=== PATIENT | male | born 1955 | race American Indian/Alaskan Native ===

== ENCOUNTER 2020-10-16 16:38 | Emergency (ER) | payer OTHER ==
[2020-10-16] MEDS ORDERED: DIPHtheria,PERTUSSIS(ACELL),TETANUS VACCINE/PF 0.5 ML VIAL IM ONE (17:55)
[2020-10-16] MEDS ORDERED: ACETAMINOPHEN 325 MG TAB PO ONE (17:55)
--- NOTE | 2020-10-16 18:01 | Emergency Department Report ---
ED General Adult HPI - General Chief complaint: Allergic Reaction Stated complaint: LACERATION BACK OF HEAD Time Seen by Provider: 10/16/20 17:49 Source: patient Mode of arrival: Ambulatory Limitations: No Limitations - History of Present Illness Initial comments: Patient is a 65-year-old male presents emergency room with complaints of a syncopal episode that occurred earlier at today. Patient states that he has a history of cervical disc issues and was just started on Voltaren by his orthopedic doctor. He states he previously used to use the Voltaren gel without any reaction. He states that he took 1 tablet of the pill today and got in the shower. He states that he then began to feel hot and started itching. He states that when he got out of the shower that he fell onto the ground and hit his head. He states that he has a laceration to his posterior scalp. He is not exactly sure what happened and states he just woke up on the ground. He states that he had a brief episode of loss of consciousness. He denies any neck pain, back pain, vision changes, numbness, weakness, bowel or bladder incontinence, gait disturbance, speech disturbance, fever, nausea, vomiting, diarrhea, shortness of breath, chest pain, facial swelling, sensation of throat closing. He has a past medical history of lupus. He has an allergy to sulfa. He is u nsure of his last tetanus immunization. - Related Data Previous Rx's Medication Instructions Recorded Last Taken Type Colchicine 0.6 mg PO DAILY #10 tablet 10/16/20 Unknown Rx Ibuprofen [Motrin 600 MG tab] 600 mg PO Q8H #20 tablet 10/16/20 Unknown Rx Allergies Allergy/AdvReac Type Severity Reaction Status Date / Time Sulfa (Sulfonamide Allergy Unknown Verified 07/17/18 02:42 Antibiotics) ED Review of Systems ROS: Stated complaint: LACERATION BACK OF HEAD Other details as noted in HPI Comment: All other systems reviewed and negative ED Past Medical Hx - Past Medical History Previous Medical History?: Yes Hx Seizures: Yes - Surgical History Past Surgical History?: Yes Additional Surgical History: knee. hernia. shoulder. back - Social History Smoking Status: Never Smoker Substance Use Type: None - Medications Home Medications: Home Medications Medication Instructions Recorded Confirmed Last Taken Type Colchicine 0.6 mg PO DAILY #10 tablet 10/16/20 Unknown Rx Ibuprofen [Motrin 600 MG tab] 600 mg PO Q8H #20 tablet 10/16/20 Unknown Rx ED Physical Exam - General Limitations: No Limitations General appearance: alert, in no apparent distress - Head Head exam: Present: other (3 cm superficial laceration present to the posterior scalp, it is only slightly open and appears to be already closing, no bleeding, no skull or facial bony ttp, no deformity, no crepitus) - Eye Eye exam: Present: normal appearance, PERRL, EOMI. Absent: conjunctival injection, periorbital swelling, periorbital tenderness Pupils: Present: normal accommodation - ENT ENT exam: Present: mucous membranes moist - Neck Neck exam: Present: normal inspection, full ROM. Absent: tenderness - Respiratory Respiratory exam: Present: normal lung sounds bilaterally. Absent: respiratory distress, wheezes, rales, rhonchi, stridor, chest wall tenderness, accessory muscle use, decreased breath sounds, prolonged expiratory - Cardiovascular Cardiovascular Exam: Present: regular rate, normal rhythm, normal heart sounds. Absent: systolic murmur, diastolic murmur, rubs, gallop - Back Exam Back exam: Present: normal inspection, full ROM. Absent: paraspinal tenderness, vertebral tenderness - Neurological Exam Neurological exam: Present: alert, oriented X3, CN II-XII intact, normal gait. Absent: motor sensory deficit - Psychiatric Psychiatric exam: Present: normal affect, normal mood - Skin Skin exam: Present: warm, dry ED Course Vital Signs 10/16/20 10/16/20 10/16/20 17:04 18:23 19:58 Temperature 98 F Pulse Rate 110 H Pulse Rate [ 97 H Sitting] Respiratory 20 18 Rate Blood Pressure 101/65 Blood Pressure [Left] Blood Pressure 102/73 [Sitting] O2 Sat by Pulse 98 Oximetry 10/16/20 10/16/20 19:59 20:00 Temperature Pulse Rate 97 H Pulse Rate [ Sitting] Respiratory 16 Rate Blood Pressure Blood Pressure 102/73 [Left] Blood Pressure [Sitting] O2 Sat by Pulse Oximetry - Laceration /Wound Repair Head Wound Location: head (posterior scalp) Wound Length (cm): 3 Wound's Depth, Shape: superficial Wound Explored: clean Irrigated w/ Saline (ccs): 50 Betadine Prep?: Yes Wound Debrided: moderate Wound Repaired With: Steri-strips, Dermabond Progress: Wound irrigated with saline and thoroughly scrubbed with Betadine, it is very superficial, it is not gaping open, multiple layers of Dermabond placed with good skin approximation, Steri-Strips applied, there is no bleeding, patient tolerated well, no complications ED Medical Decision Making - Lab Data Result diagrams: 10/16/20 18:09 10/16/20 18:09 Lab Results 10/16/20 10/16/20 Range/Units 18:09 18:09 WBC 7.9 (4.5-11.0) K/mm3 RBC 4.64 (3.65-5.03) M/mm3 Hgb 15.9 H (11.8-15.2) gm/dl Hct 46.1 H (35.5-45.6) % MCV 99 H (84-94) fl MCH 34 H (28-32) pg MCHC 34 (32-34) % RDW 13.3 (13.2-15.2) % Plt Count 285 (140-440) K/mm3 Lymph % (Auto) 4.9 L (13.4-35.0) % [place] % (Auto) 5.7 (0.0-7.3) % Eos % (Auto) 0.2 (0.0-4.3) % Baso % (Auto) 0.3 (0.0-1.8) % Lymph # (Auto) 0.4 L (1.2-5.4) K/mm3 [place] # (Auto) 0.5 (0.0-0.8) K/mm3 Eos # (Auto) 0.0 (0.0-0.4) K/mm3 Baso # (Auto) 0.0 (0.0-0.1) K/mm3 Seg Neutrophils % 88.9 H (40.0-70.0) % Seg Neutrophils # 7.1 (1.8-7.7) K/mm3 Sodium 136 L (137-145) mmol/L Potassium 4.2 (3.6-5.0) mmol/L Chloride 102.2 (98-107) mmol/L Carbon Dioxide 21 L (22-30) mmol/L Anion Gap 17 mmol/L BUN 16 (9-20) mg/dL Creatinine 1.1 (0.8-1.3) mg/dL Estimated GFR > 60 ml/min BUN/Creatinine Ratio 15 % Glucose 88 (75-100) mg/dL Calcium 8.9 (8.4-10.2) mg/dL Magnesium 2.10 (1.7-2.3) mg/dL Total Bilirubin 0.30 (0.1-1.2) mg/dL AST 36 (5-40) units/L ALT 22 (7-56) units/L Alkaline Phosphatase 38 (35-129) units/L Total Creatine Kinase 416 H (55-170) units/L Troponin T < 0.010 (0.00-0.029) ng/mL Total Protein 7.0 (6.3-8.2) g/dL Albumin 4.2 (3.9-5) g/dL Albumin/Globulin Ratio 1.5 % Vital Signs 10/16/20 10/16/20 10/16/20 17:04 18:23 19:58 Temperature 98 F Pulse Rate 110 H Pulse Rate [ 97 H Sitting] Respiratory 20 18 Rate Blood Pressure 101/65 Blood Pressure [Left] Blood Pressure 102/73 [Sitting] O2 Sat by Pulse 98 Oximetry 10/16/20 10/16/20 19:59 20:00 Temperature Pulse Rate 97 H Pulse Rate [ Sitting] Respiratory 16 Rate Blood Pressure Blood Pressure 102/73 [Left] Blood Pressure [Sitting] O2 Sat by Pulse Oximetry - EKG Data EKG shows normal: sinus rhythm, axis, QRS complexes Rate: tachycardia - EKG Data 10/16/20 22:12 OR depression and mild ST elevation diffusely, could represent acute pericarditis no STEMI - Radiology Data Radiology results: report reviewed Ordering Physician: TELMA ROSE Date of Service: 10/16/20 Procedure(s): CT head/brain wo [facility] Accession Number(s): [id number] cc: TELMA ROSE CT HEAD WITHOUT CONTRAST HISTORY: MAIN COMPARISON: None TECHNIQUE: CT imaging of the head was performed in the axial, sagittal, and coronal projections and bone algorithm in axial projection in the soft tissue algorithm. All CT scans at this location are performed using CT dose reduction for ALARA by means of automated exposure control. CONTRAST: None. FINDINGS: Cerebral and Cerebellar Hemispheres: No evidence of mass or mass effect. No midline shift. No acute hemorrhage. No acute cortical infarction. No extra-axial fluid collection. Ventricles: Normal in size and configuration for age. Osseous Structures: No significant abnormality. Visualized Paranasal Sinuses: No significant abnormality. Additional Findings: None IMPRESSION: 1. No acute intracranial abnormality. NOTE: Acute infarct may not be visible by noncontrast CT. Signer Name: Fredo Cunha MD Signed: 10/16/2020 6:42 PM Workstation Name: [id number] Transcribed By: JAVAN Dictated By: Fredo Cunha MD Electronically Authenticated By: Fredo Cunha MD Signed Date/Time: 10/16/201841 DD/ 40 TD/TT: Print - Medical Decision Making Patient is a 65-year-old male presents emergency room with complaints of a sy ncopal episode that occurred earlier at today. Patient states that he has a history of cervical disc issues and was just started on Voltaren by his orthopedic doctor. He states he previously used to use the Voltaren gel without any reaction. He states that he took 1 tablet of the pill today and got in the shower. He states that he then began to feel hot and started itching. He states that when he got out of the shower that he fell onto the ground and hit his head. He states that he has a laceration to his posterior scalp. He is not exactly sure what happened and states he just woke up on the ground. He states that he had a brief episode of loss of consciousness. He denies any neck pain, back pain, vision changes, numbness, weakness, bowel or bladder incontinence, gait disturbance, speech disturbance, fever, nausea, vomiting, diarrhea, shortness of breath, chest pain, facial swelling, sensation of throat closing. He has a past medical history of lupus. He has an allergy to sulfa. He is unsure of his last tetanus immunization. initial vitals with elevated heart rate which improved upon repeat. On exam:3 cm superficial laceration present to the posterior scalp, it is only slightly open and appears to be already closing, no bleeding, no skull or facial bony ttp, no deformity, no crepitus, no focal neuro deficit on exam. EKG shows OR depression and mild diffuse ST kwaku vation, likely consistent with acute pericarditis, he does have a history of lupus, could be associated, no STEMI. Labs with mild dehydration, otherwise stable. CT head: 1. No acute intracranial abnormality. Superficial laceration repaired per procedure note without any complications. Discussed case with Dr. Lucas, ER attending who recommended admission for syncope. Discussed with patient that he would need to be admitted to the hospital service for further evaluation of syncope. Patient states that he does not want to stay and he just wanted to have his laceration fixed and to go home. I advised patient that he would need to sign out AGAINST MEDICAL ADVICE. The patient is alert and oriented x3. The patient exhibits decision-making capacity. The patient is free from distracting injury. The risk of leaving without a complete medical examination, and AGAINST MEDICAL ADVICE, were explained to the patient, and they included , disability, paralysis, permanent loss of quality of life. Patient verbalized understanding to these and was able to articulate these risk in their own words. Critical care attestation.: If time is entered above; I have spent that time in minutes in the direct care of this critically ill patient, excluding procedure time. ED Disposition Clinical Impression: Syncope Qualifiers: Syncope type: unspecified Qualified Code(s): R55 - Syncope and collapse Pericarditis Qualifiers: Pericarditis type: unspecified type Chronicity: acute Qualified Code(s): I30.9 - Acute pericarditis, unspecified Scalp laceration Qualifiers: Encounter type: initial encounter Qualified Code(s): S01.01XA - Laceration without foreign body of scalp, initial encounter Disposition: DC-07 LEFT AGAINST MED ADVICE Is pt being admited?: No Does the pt Need Aspirin: No Condition: Undetermined Instructions: Pericarditis, Laceration Care, Adult, Syncope, [id number], Syncope (ED) Additional Instructions: Please take medication as prescribed. Please do not get area wet on the back of your head for the next 2 days. After 2 days may wash with soap and water pat dry. Follow-up with your primary care doctor soon as possible. Follow-up with a networking engineer soon as possible. Return to emergency room immediately if you wo uld like to be admitted You are leaving today AGAINST MEDICAL ADVICE the risks associated with doing so include , disability, permanent loss of quality of life, serious infection Prescriptions: Colchicine 0.6 mg PO DAILY #10 tablet Ibuprofen [Motrin 600 MG tab] 600 mg PO Q8H #20 tablet Referrals: JAYSON ADRIAN MD [Primary Care Provider] - 2-3 Days ÁLVARO MILLER MD [Staff Physician] - 2-3 Days Forms: AMA Form Time of Disposition: 20:10 Print Language: ROMANSH
[2020-10-16 18:40] LABS: Basophils % (Auto) 0.3 % (0.0-1.8); Eosinophils % (Auto) 0.2 % (0.0-4.3); Hematocrit 46.1 % (35.5-45.6); Hemoglobin 15.9 gm/dl (11.8-15.2); Lymphocytes # (Auto) 0.4 K/mm3 (1.2-5.4); Lymphocytes % (Auto) 4.9 % (13.4-35.0); Mean Corpuscular HGB Conc 34 % (32-34); Mean Corpuscular Volume 99 fl (84-94); Monocytes # (Auto) 0.5 K/mm3 (0.0-0.8); Monocytes % (Auto) 5.7 % (0.0-7.3); Platelet Count 285 K/mm3 (140-440); Red Blood Count 4.64 M/mm3 (3.65-5.03); Red Cell Distribution Width 13.3 % (13.2-15.2)
[2020-10-16 18:46] LABS: Alanine Aminotransferase 22 units/L (7-56); Albumin 4.2 g/dL (3.9-5); BUN/Creatinine Ratio 15; Blood Urea Nitrogen 16 mg/dL (9-20); Calcium 8.9 mg/dL (8.4-10.2); Hemolysis Index 73
--- NOTE | 2020-10-16 18:47 | Cat Scan Report ---
CT HEAD WITHOUT CONTRAST HISTORY: MAIN COMPARISON: None TECHNIQUE: CT imaging of the head was performed in the axial, sagittal, and coronal projections and bone algori thm in axial projection in the soft tissue algorithm. All CT scans at this location are performed using CT dose reduction for ALARA by means of automated e xposure control. CONTRAST: None. FINDINGS: Cerebral and Cerebellar Hemispheres: No evidence of mass or mass effect. No midline shift. No acute hemorrhage. No acute cortical infarction. No extra-axial fluid collection. Ventricles: Normal in size and configuration for age. Osseous Structures: No significant abnormality. Visualized Paranasal Sinuses: No significant abnormality. Additional Findings: None IMPRESSION: 1. No acute intracranial abnormality. NOTE: Acute infarct may not be visible by noncontrast CT. Signer Name: Fredo Cunha MD Signed: 10/16/2020 6:42 PM Workstation Name: [id number]
[2020-10-16 19:59] VITALS: BP 102/73
--- NOTE | 2020-10-17 14:02 | Electrocardiograph Report ---
[facility] Test Date: 2020-10-16 Test Time: 17:59:22 Pat Name: CARMEN SELF Department: Room: Gender: M Supervisor Prepress: NIRANJAN : 1955 Requested By: DAIJA WOODS Order Number: [id number] Reading MD: Noble Ruffin Measurements Intervals [place] Rate: 100 P: 80 [place]: 142 QRS: 80 QRSD: 72 T: 62 QT: 333 QTc: 430 Interpretive Statements Sinus tachycardia Right atrial enlargement ST elevation suggests acute pericarditis No previous ECG available for comparison Electronically Signed On 10-17-2020 11:01:53 PDT by Noble Ruffin
== END 2020-10-16 20:32 | disposition left against medical advice (07) ==
LOC: ED 16:38
DX: S01.01XA Laceration without foreign body of scalp, initial encounter (principal); R56.9 Unspecified convulsions; Z98.890 Other specified postprocedural states; Z79.1 Long term (current) use of non-steroidal anti-inflammatories (NSAID); Z79.899 Other long term (current) drug therapy; Z88.2 Allergy status to sulfonamides; W18.30XA Fall on same level, unspecified, initial encounter; Y93.89 Activity, other specified; Y92.89 Other specified places as the place of occurrence of the external cause; Y99.8 Other external cause status
CPT/HCPCS: 36415; 70450; 80053; 82550; 83735; 84484; 85025; 90471; 90715; 93005

== ENCOUNTER 2021-10-06 13:07 | Emergency (ER) | payer OTHER ==
--- NOTE | 2021-10-06 17:39 | Emergency Department Report ---
ED General Adult HPI - General Chief complaint: Pain General Stated complaint: SEIZURE LUPUS RELATED Time Seen by Provider: 10/06/21 17:05 Source: patient Mode of arrival: Ambulatory Limitations: No Limitations - History of Present Illness Initial comments: Chief complaint: "I hurt everywhere." HPI: This is a 66-year-old male with history of discoid lupus, cervical disc disease, seizure who presents with diffuse pain in his lower back and lower legs. He takes hydroxychloroquine. He thinks he may have had a seizure on Sunday which may have caused the pain. -: Gradual, days(s) (2 days) Location: back, left, right, lower extremity Severity scale (0 -10): 8 Quality: aching Consistency: constant Improves with: none Worsens with: none Associated Symptoms: denies other symptoms Treatments Prior to Arrival: none - Related Data Previous Rx's Medication Instructions Recorded Last Taken Type Colchicine 0.6 mg PO DAILY #10 tablet 10/16/20 Unknown Rx Ibuprofen [Motrin 600 MG tab] 600 mg PO Q8H #20 tablet 10/16/20 Unknown Rx Prednisone [predniSONE 10 mg 10 mg PO .TAPER #1 10/06/21 Unknown Rx (6-Day Pack, 21 Tabs)] oxyCODONE /ACETAMINOPHEN [Percocet 1 tab PO Q6HR PRN #10 tablet 10/06/21 Unknown Rx 5/325] Allergies Allergy/AdvReac Type Severity Reaction Status Date / Time Sulfa (Sulfonamide Allergy Unknown Verified 07/17/18 02:42 Antibiotics) ED Review of Systems ROS: Stated complaint: SEIZURE LUPUS RELATED Other details as noted in HPI Comment: All other systems reviewed and negative Constitutional: denies: chills, fever, malaise Respiratory: denies: cough Cardiovascular: denies: chest pain Gastrointestinal: denies: abdominal pain, nausea, vomiting Musculoskeletal: back pain, myalgia Neurological: denies: headache ED Past Medical Hx - Past Medical History Previous Medical History?: Yes Hx Seizures: Yes Additional medical history: Discoid lupus - Surgical History Past Surgical History?: Yes Additional Surgical History: knee. hernia. shoulder. back - Social History Smoking Status: Never Smoker Substance Use Type: None - Medications Home Medications: Home Medications Medication Instructions Recorded Confirmed Last Taken Type Colchicine 0.6 mg PO DAILY #10 tablet 10/16/20 Unknown Rx Ibuprofen [Motrin 600 MG tab] 600 mg PO Q8H #20 tablet 10/16/20 Unknown Rx Prednisone [predniSONE 10 mg 10 mg PO .TAPER #1 10/06/21 Unknown Rx (6-Day Pack, 21 Tabs)] oxyCODONE /ACETAMINOPHEN [Percocet 1 tab PO Q6HR PRN #10 tablet 10/06/21 Unknown Rx 5/325] ED Physical Exam - General Limitations: No Limitations General appearance: alert, in no apparent distress - Head Head exam: Present: atraumatic, normocephalic - Eye Eye exam: Present: normal appearance - ENT ENT exam: Present: mucous membranes moist - Neck Neck exam: Present: normal inspection, full ROM - Respiratory Respiratory exam: Present: normal lung sounds bilaterally. Absent: respiratory distress, wheezes, rales, rhonchi - Cardiovascular Cardiovascular Exam: Present: regular rate, normal rhythm, normal heart sounds. Absent: systolic murmur, diastolic murmur, rubs, gallop - GI/Abdominal GI/Abdominal exam: Present: soft, normal bowel sounds. Absent: distended, tenderness, guarding, rebound - Rectal Rectal exam: Present: deferred - Extremities Exam Extremities exam: Present: normal inspection - Back Exam Back exam: Present: normal inspection, full ROM. Absent: tenderness - Neurological Exam Neurological exam: Present: alert, oriented X3 - Psychiatric Psychiatric exam: Present: normal affect, normal mood - Skin Skin exam: Present: warm, dry, intact, normal color. Absent: rash ED Course Vital Signs 10/06/21 13:32 Temperature 99.0 F Pulse Rate 112 H Respiratory 18 Rate Blood Pressure 119/88 O2 Sat by Pulse 97 Oximetry ED Medical Decision Making - Medical Decision Making Generalized pain and lower back pain lower legs. Normal physical exam. Pain likely due to mild trauma related to seizure. Prescribed Percocet. Patient has history of cervical disc disease. Likely has lumbar disc disease. Prescriptions prednisone and Percocet. Critical care attestation.: If time is entered above; I have spent that time in minutes in the direct care of this critically ill patient, excluding procedure time. ED Disposition Clinical Impression: Generalized pain Disposition: HOME / SELF CARE / HOMELESS Is pt being admited?: No Does the pt Need Aspirin: No Condition: Stable Instructions: Musculoskeletal Pain Prescriptions: oxyCODONE /ACETAMINOPHEN [Percocet 5/325] 1 tab PO Q6HR PRN #10 tablet PRN Reason: Pain Prednisone [predniSONE 10 mg (6-Day Pack, 21 Tabs)] 10 mg PO .TAPER #1
[2021-10-06 18:08] VITALS: BP 135/87
== END 2021-10-06 18:06 | disposition home or self-care (01) ==
LOC: ED 13:07
DX: R52 Pain, unspecified (principal); Z88.2 Allergy status to sulfonamides
CPT/HCPCS: 99282

== ENCOUNTER 2021-10-15 03:16 | Emergency (ER) | payer OTHER ==
[2021-10-15] MEDS ORDERED: predniSONE 20 MG TAB PO ONE (09:09)
[2021-10-15] MEDS ORDERED: CYCLOBENZAPRINE 10 MG TAB PO ONE (09:09)
[2021-10-15] MEDS ORDERED: KETOROLAC 10 MG TAB PO ONE (09:09)
--- NOTE | 2021-10-15 09:09 | Emergency Department Report ---
ED Back Pain/Injury HPI - General Chief Complaint: Back Pain/Injury Stated Complaint: NECK AND BACK PAIN Time Seen by Provider: 10/15/21 08:48 Source: patient Limitations: No Limitations - History of Present Illness Initial Comments: 66-year-old black male with a past medical history of lupus and seizures presents to the emergency department for evaluation of 7-day history of neck and upper back pain. He denies any injury and states that pain is worse with movement. He states that he has a history of ongoing neck pain for which he sees an orthopedic surgeon and has recently started doing physical therapy. He states that he was also lifting lots of heavy boxes at work more than usual which may pain much worse. He states that pain was worse when he woke up this morning. MD Complaint: back pain, other (Neck pain) -: Gradual, days(s) (7) Similar Symptoms Previously: Yes Place: home, work Radiation: none Severity: severe Severity scale (0 -10): 10 Quality: aching Consistency: intermittent Worsens With: movement Context: other (History of chronic back pain that he is now taken [employer] for along with increased physical activity at work) Associated Symptoms: denies other symptoms Treatments Prior to Arrival: NSAIDS - Related Data Previous Rx's Medication Instructions Recorded Last Taken Type Colchicine 0.6 mg PO DAILY #10 tablet 10/16/20 Unknown Rx Ibuprofen [Motrin 600 MG tab] 600 mg PO Q8H #20 tablet 10/16/20 Unknown Rx Prednisone [predniSONE 10 mg 10 mg PO .TAPER #1 10/06/21 Unknown Rx (6-Day Pack, 21 Tabs)] oxyCODONE /ACETAMINOPHEN [Percocet 1 tab PO Q6HR PRN #10 tablet 10/06/21 Unknown Rx 5/325] Cyclobenzaprine [Flexeril] 10 mg PO TID PRN #21 tab 10/15/21 Unknown Rx Lidocaine [Lidoderm] 1 each TP DAILY PRN #10 patch 10/15/21 Unknown Rx Naproxen [Naprosyn] 500 mg PO BID #14 tab 10/15/21 Unknown Rx Prednisone [predniSONE 10 mg 10 mg PO .TAPER #1 pack 10/15/21 Unknown Rx (6-Day Pack, 21 Tabs)] Allergies Allergy/AdvReac Type Severity Reaction Status Date / Time Sulfa (Sulfonamide Allergy Unknown Verified 07/17/18 02:42 Antibiotics) ED Review of Systems ROS: Stated complaint: NECK AND BACK PAIN Other details as noted in HPI Comment: All other systems reviewed and negative Constitutional: denies: chills, fever Respiratory: denies: shortness of breath Cardiovascular: denies: chest pain, palpitations Gastrointestinal: denies: abdominal pain, nausea, vomiting, hematemesis, melena, hematochezia Genitourinary: denies: urgency, dysuria, frequency, hematuria, discharge, testicular pain Musculoskeletal: back pain Neurological: denies: headache ED Past Medical Hx - Past Medical History Hx Seizures: Yes Additional medical history: Discoid lupus - Surgical History Additional Surgical History: knee. hernia. shoulder. back - Social History Smoking Status: Never Smoker Substance Use Type: None - Medications Home Medications: Home Medications Medication Instructions Recorded Confirmed Last Taken Type Colchicine 0.6 mg PO DAILY #10 tablet 10/16/20 Unknown Rx Ibuprofen [Motrin 600 MG tab] 600 mg PO Q8H #20 tablet 10/16/20 Unknown Rx Prednisone [predniSONE 10 mg 10 mg PO .TAPER #1 10/06/21 Unknown Rx (6-Day Pack, 21 Tabs)] oxyCODONE /ACETAMINOPHEN [Percocet 1 tab PO Q6HR PRN #10 tablet 10/06/21 Unknown Rx 5/325] Cyclobenzaprine [Flexeril] 10 mg PO TID PRN #21 tab 10/15/21 Unknown Rx Lidocaine [Lidoderm] 1 each TP DAILY PRN #10 patch 10/15/21 Unknown Rx Naproxen [Naprosyn] 500 mg PO BID #14 tab 10/15/21 Unknown Rx Prednisone [predniSONE 10 mg 10 mg PO .TAPER #1 pack 10/15/21 Unknown Rx (6-Day Pack, 21 Tabs)] ED Physical Exam - General Limitations: No Limitations General appearance: alert, in no apparent distress - Head Head exam: Present: atraumatic, normocephalic - Eye Eye exam: Present: normal appearance. Absent: conjunctival injection - Neck Neck exam: Present: normal inspection, full ROM. Absent: tenderness, lymphadenopathy - Respiratory Respiratory exam: Present: normal lung sounds bilaterally. Absent: respiratory distress, wheezes, rales, rhonchi, stridor, chest wall tenderness, accessory muscle use - Cardiovascular Cardiovascular Exam: Present: regular rate, normal heart sounds - GI/Abdominal GI/Abdominal exam: Present: soft, normal bowel sounds. Absent: distended, tenderness, guarding, rebound, rigid - Back Exam Back exam: Present: normal inspection, full ROM. Absent: tenderness, CVA tenderness (R), CVA tenderness (L), paraspinal tenderness, vertebral tenderness - Neurological Exam Neurological exam: Present: alert, oriented X3, CN II-XII intact, normal gait, reflexes normal. Absent: motor sensory deficit - Psychiatric Psychiatric exam: Present: normal affect, normal mood - Skin Skin exam: Present: warm, dry, intact, normal color ED Course Vital Signs 10/15/21 10/15/21 10/15/21 03:41 03:43 09:36 Temperature 98.3 F Pulse Rate 87 74 Respiratory 18 16 Rate Blood Pressure 117/79 Blood Pressure 114/72 [Right] O2 Sat by Pulse 97 99 Oximetry ED Medical Decision Making - Medical Decision Making 66-year-old black male with a past medical history of lupus and seizures presents to the emergency department for evaluation of 7-day history of neck and upper back pain. He denies any injury and states that pain is worse with movement. He states that he has a history of ongoing neck pain for which he sees an orthopedic surgeon and has recently started doing physical therapy. He states that he was also lifting lots of heavy boxes at work more than usual which may pain much worse. He states that pain was worse when he woke up this morning. Patient without any acute abnormalities noted on assessment and no saddle anesthesia noted. He has a history of chronic back pain for which he is already seeing orthopedics and physical therapy. He will be treated with anti- inflammatories, muscle relaxants, steroid pack, and lidocaine patch. He is advised to take medications as prescribed and follow-up with orthopedic doctor and physical therapist as planned. He is advised to return to the emergency department for any concerning symptoms. Critical care attestation.: If time is entered above; I have spent that time in minutes in the direct care of this critically ill patient, excluding procedure time. ED Disposition Clinical Impression: Neck pain Back pain Qualifiers: Back pain location: thoracic back pain Chronicity: acute Back pain laterality: bilateral Qualified Code(s): M54.6 - Pain in thoracic spine Disposition: HOME / SELF CARE / HOMELESS Is pt being admited?: No Does the pt Need Aspirin: No Condition: Stable Instructions: Neck Exercises, Acute Back Pain, Adult, Cervical Sprain, [id number] Additional Instructions: Take medications as prescribed. Follow-up with primary care provider for further evaluation. Return to the emergency department for any concerning symptoms. Prescriptions: Cyclobenzaprine [Flexeril] 10 mg PO TID PRN #21 tab PRN Reason: Muscle Spasm Lidocaine [Lidoderm] 1 each TP DAILY PRN #10 patch PRN Reason: Pain , Severe (7-10) Naproxen [Naprosyn] 500 mg PO BID #14 tab Prednisone [predniSONE 10 mg (6-Day Pack, 21 Tabs)] 10 mg PO .TAPER #1 pack Referrals: PATEL JAIN MD [Primary Care Provider] - 3-5 Days Forms: Work/School Release Form Time of Disposition: 09:22
[2021-10-15 09:38] VITALS: BP 117/79
== END 2021-10-15 09:38 | disposition home or self-care (01) ==
LOC: ED 03:16
DX: M54.2 Cervicalgia (principal); M54.6 Pain in thoracic spine; Z88.6 Allergy status to analgesic agent; Z86.69 Personal history of other diseases of the nervous system and sense organs; Z79.899 Other long term (current) drug therapy
CPT/HCPCS: 99282